=== PATIENT | male | born 1975 | race Caucasian/White ===

== ENCOUNTER 2021-04-19 16:07 | Emergency (ER) | payer BC, OTHER ==
[~2021-04-19] VITALS: Ht 182.9 cm; Wt 120.0 kg
--- NOTE | 2021-04-19 16:12 | ED General ---
General Stated Complaint: LIP SWELLING History of Present Illness Date Seen by Provider: Apr 19, 2021 Time Seen by Provider: 16:12 Initial Comments 45-year-old male presents with concerns for anaphylactic reaction. Patient reports that he got bit by a bee on his right arm. That he is allergic to bees. Patient had some mild lip swelling. He took a Benadryl in route present at [facility]. This happened approximately 30 minutes prior to arrival to the ER. Upon arrival at [facility] they gave him an EpiPen. Patient did not present with any nausea, vomiting, wheezing or shortness of breath. He does not report a rash. No other systemic complaints. Allergies and Home Medications Allergies Coded Allergies: No Known Drug Allergies (Unverified , 04/19/21) Home Medications Epinephrine 0.3 Mg/0.3 Ml Auto.injct, 0.3 MG IJ ONCE Prescribed by: SONYA YOUNGBLOOD on 04/19/21 9351 Patient Home Medication List Home Medication List Reviewed: Yes Review of Systems Review of Systems Constitutional: No see HPI, No chills EENTM: see HPI Respiratory: No cough, No short of breath, No wheezing Cardiovascular: No chest pain, No palpitations Gastrointestinal: no symptoms reported; No abdominal pain, No diarrhea, No nausea, No vomiting Musculoskeletal: no symptoms reported Skin: No rash Psychiatric/Neurological: No Symptoms Reported Hematologic/Lymphatic: No Symptoms Reported Physical Exam Vital Signs Vital Signs - First Documented 04/19/21 16:07 Temp 37.0 Pulse 92 Resp 20 B/P (MAP) 187/95 (125) Pulse Ox 94 O2 Delivery Room Air Capillary Refill : Height, Weight, BMI Height: '" Weight: lbs. oz. 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 Skin: Normal Color, Warm/Dry Progress/Results/Core Measures Suspected Sepsis SIRS Temperature: Pulse: Respiratory Rate: Blood Pressure / Mean: Results/Orders My Orders Orders - SONYA YOUNGBLOOD DO Famotidine Injection (Pepcid Injection) (04/19/21 16:13) Methylprednisolone Sod Succ (Solu-Medrol (04/19/21 16:13) Hydroxyzine Cap/Tab (Vistaril) (04/19/21 18:00) Medications Given in ED Current Medications Medications Dose Ordered Sig/Jacinto Route Start Time Stop Time Status Last Admin Dose Admin Hydroxyzine Pamoate 25 mg ONCE ONCE PO 04/19/21 18:00 04/19/21 18:01 DC 04/19/21 18:01 25 MG Vital Signs/I&O 04/19/21 04/19/21 16:07 19:05 Temp 37.0 37.0 Pulse 92 89 Resp 20 14 B/P (MAP) 187/95 (125) 141/77 (125) Pulse Ox 94 95 O2 Delivery Room Air Room Air Capillary Refill : Progress Note : Progress Note Patient had a little mild itching during the stay but otherwise remained asymptomatic. Patient was stable, discharged home. He was discharged with a prescription for an EpiPen. He should return to the ER as needed Departure Impression Primary Impression: Bee sting Qualified Codes: T63.441A - Toxic effect of venom of bees, accidental (unintentional), initial encounter Additional Impression: Allergic reaction to bee sting Disposition: HOME, SELF-CARE Condition: Improved Departure-Patient Inst. Referrals: NO,LOCAL PHYSICIAN (PCP/Family) Primary Care Physician Patient Instructions: Allergic Reaction ED Scripts Epinephrine (Epipen) 0.3 Mg/0.3 Ml Auto.injct 0.3 MG IJ ONCE, #1 EA Prov: SONYA YOUNGBLOOD DO 04/19/21 SONYA YOUNGBLOOD DO Apr 19, 2021 16:12
[2021-04-19] MEDS ORDERED: FAMOTIDINE 20MG/2ML IV (PEPCID) IV STA (16:13)
[2021-04-19] MEDS ORDERED: methylPREDNISolone 125 MG (Solu-MEDROL) VIAL IV STA (16:13)
[2021-04-19] MEDS ORDERED: EPIN0.3P2 IJ (16:25)
[2021-04-19] MEDS ORDERED: hydrOXYzine (VISTARIL/ATARAX) 25 MG capsule/tablet PO ONE (18:00)
[2021-04-19 19:05] VITALS: BP 141/77
== END 2021-04-19 19:05 | disposition home or self-care (01) ==
LOC: ER FS 16:09
DX: T63.441A Toxic effect of venom of bees, accidental (unintentional), initial encounter (principal)
CPT/HCPCS: 99283

== ENCOUNTER 2023-06-25 10:10 | Emergency (ER) | payer BC, OTHER ==
[~2023-06-25] VITALS: Ht 182 cm; Wt 116.0 kg
[~2023-06-25 10:10] MED LIST: EPIN0.3P2 IJ
[2023-06-25 10:18] VITALS: BP 168/107
[2023-06-25] MEDS ORDERED: KETOROLAC INJ 60 MG/2 ML VIAL IM STA (10:23)
--- NOTE | 2023-06-25 10:45 | Diagnostic Imaging Report ---
INDICATION: right lower rib pain after cough, fall 06/15 TECHNIQUE: Single view chest along with 3 views right RIBS, 10:38 AM CORRELATION STUDY: None FINDINGS: The heart size, mediastinal configuration and pulmonary vascularity are within normal limits. The lungs are clear with no consolidating infiltrate. There is no significant effusion or pneumothorax. No acute displaced right rib fracture. IMPRESSION: 1. Negative appearing single view chest. 2. Negative for acute displaced right-sided rib fracture. Dictated by: Dictated on workstation # [id number]
--- NOTE | 2023-06-25 10:54 | ED Chest Pain ---
General Chief Complaint: Chest Wall Stated Complaint: RT RIB PAIN Nursing Triage Note: Patient has ambulated to ER with cc of postior right rib pain. Patient that he fell back into a cooler on last Friday and "broke his ribs". He has not seen anyone for the pain. Today he coughed and he states that "he rebroke" his ribs during the cough this morning. He has not taken anything for the pain. He has not seen his doctor and came to ER for evaluation. Source: patient History of Present Illness Date Seen by Provider: Jun 25, 2023 Time Seen by Provider: 10:13 Initial Comments 48 yo male presenting with complaint of pain to right side of chest and ribs. He was coughing today and felt a pop and had severe pain to right lower ribs. He felt like he had broken a rib and was concerned that he might have had a rib fracture from FridayJune 15 when he fell against a cooler. He has increased pain with movement and with deep breaths. He wanted to get imaging to check for broken rib or collapsed lung. He had to use some of his time off from work last week due to the pain and was just starting to feel better when he coughed today and everything got much worse. He denies taking anything for the pain as he states he has high tolerance for pain and when he takes medications he quickly develops a tolerance to them. He states that in the past he had been on pain medicine and muscle relaxers to help with his low back pain but it has been over 10 to 12 years. At that time he had to have oxycodone to try and help with the pain and "a really strong" muscle relaxer but he could not remember which muscle relaxer. Severity/Quality: severe, sharp Location: back (lower right posterior rib pain) Activities at Onset: other (coughing today) Modifying Factors: worse with breathing, worse with coughing, worse with movement, worse with palpation ASA po BODY REPAIRER: No NTG SL BODY REPAIRER: No Associated Symptoms: No abdominal pain, No back pain, No diaphoresis, No d izziness, No edema, No fatigue, No fever/chills, No headache, No heartburn, No nausea/vomiting, No rash, No shortness of breath, No swelling/lump in chest, No syncope, No weakness Allergies and Home Medications Allergies Coded Allergies: No Known Drug Allergies (Unverified , 04/19/21) Patient Home Medication List Home Medication List Reviewed: Yes Cyclobenzaprine HCl (Cyclobenzaprine HCl) 10 Mg Tablet, 10 MG PO Q8H PRN for SPASMS Prescribed by: BARBARA HERNANDEZ on 06/25/23 1112 Epinephrine (Epipen) 0.3 Mg/0.3 Ml Auto.injct, 0.3 MG IJ ONCE Prescribed by: SONYA YOUNGBLOOD on 04/19/21 1625 Oxycodone HCl/Acetaminophen (Oxycodone-Acetaminophen 10-325) 10 Mg-325 Mg Tablet, 1 EACH PO Q6H PRN for PAIN SEVERE Prescribed by: BARBARA HERNANDEZ on 06/25/23 1112 Review of Systems Review of Systems Constitutional: No chills, No fever EENTM: No Symptoms Reported Respiratory: See HPI Cardiovascular: See HPI Gastrointestinal: No Symptoms Reported Genitourinary: No Symptoms Reported Musculoskeletal: see HPI Skin: no symptoms reported Psychiatric/Neurological: Denies Numbness, Denies Paresthesia Past Kofhuut-Zapzlk-Uooamf Hx Patient Social History Tobacco Use?: Yes Tobacco type used: Cigarettes Use of E-Cig and/or Vaping dev: No Substance use?: No Alcohol Use?: Yes Alcohol Frequency: Once in a while Physical Exam Vital Signs Vital Signs - First Documented 06/25/23 10:18 Temp 36.6 Pulse 83 Resp 18 B/P (MAP) 168/107 (127) Pulse Ox 98 O2 Delivery Room Air Capillary Refill : Height, Weight, BMI Height: '" Weight: lbs. oz. kg; 35.00 BMI Method: General Appearance: No Apparent Distress, WD/WN Respiratory: No Chest Non Tender (Tender to palpation especially on the right lower posterior ribs. No crepitus or step-off palpated or noted.); Lungs Clear, No Accessory Muscle Use, No Respiratory Distress, Decreased Breath Sounds Cardiovascular: Regular Rate, Rhythm, Normal Peripheral Pulses Neurologic/Psychiatric: Alert, Oriented x3 Skin: Normal Color, Warm/Dry; No Ecchymosis Progress/Results/Core Measures Results/Orders My Orders Orders - BARBARA HERNANDEZ MD Ketorolac Injection (Ketorolac Injection (06/25/23 10:23) Ribs/Unilateral With Chest (06/25/23 10:24) Vital Signs/I&O 06/25/23 10:18 Temp 36.6 Pulse 83 Resp 18 B/P (MAP) 168/107 (127) Pulse Ox 98 O2 Delivery Room Air Blood Pressure Mean: 127 Progress Progress Note #1: Progress Note Differential diagnosis includes rib fracture, rib contusion, chest wall contusion, pneumothorax, hemothorax, pleural effusion. Offered medicine to help with pain and inflammation while waiting on x-rays. Patient drove himself so unable to give anything stronger than Toradol. He was agreeable to getting a Toradol shot so Toradol 60 mg IM was ordered. Obtain a chest x-ray with right rib films. Progress Note #2: Progress Note No acute process or definite rib fracture seen on imaging. No pneumothorax. Reassured patient and counseled on symptomatic care as well as we will try prescribing cyclobenzaprine and Percocet. As he is complaining of severe pain and has a tolerance to medicine will prescribe oxycodone/acetaminophen 10/325 1 pill every 6 hours as needed severe pain. Prescribed 5 days worth of medicine. Also sent cyclobenzaprine 10 mg p.o. 3 times daily as needed muscle spasms x10 days. Counseled on follow-up and return precautions. Advised he could try using [id number] lidocaine patches as well. If having continued concerns or more problems or needed additional medicine then check with Dr. Alexander or the [facility] clinic. Diagnostic Imaging Diagonstic Imaging: Xray Plain Films/CT/US/NM/MRI: chest (with ribs) Comments NAME: CHERISE REYNA [facility] REC#: [id number] PT STATUS: REG ER : 1975 PHYSICIAN: BARBARA HERNANDEZ MD ADMIT DATE: 06/25/23/ER FS Draft Date of Exam:06/25/23 RIBS/UNILATERAL WITH CHEST INDICATION: right lower rib pain after cough, fall 06/15 TECHNIQUE: Single view chest along with 3 views right RIBS, 10:38 AM CORRELATION STUDY: None FINDINGS: The heart size, mediastinal configuration and pulmonary vascularity are within normal limits. The lungs are clear with no consolidating infiltrate. There is no significant effusion or pneumothorax. No acute displaced right rib fracture. IMPRESSION: 1. Negative appearing single view chest. 2. Negative for acute displaced right-sided rib fracture. Dictated on workstation # [id number] Dict: 06/25/23 1043 Trans: 06/25/23 1044 DO [id number] Interpreted by: BIANCA ABDI DO Electronically signed by: Reviewed: Reviewed by Me Departure Impression Primary Impression: Right-sided chest wall pain Additional Impressions: Contusion of right chest wall Qualified Codes: S20.211A - Contusion of right front wall of thorax, initial encounter Rib pain on right side Fall Qualified Codes: W19.XXXA - Unspecified fall, initial encounter Disposition: 01 HOME, SELF-CARE Condition: Stable Departure-Patient Inst. Decision time for Depature: 11:10 Referrals: NO,LOCAL PHYSICIAN (PCP) Primary Care Physician SHAR,GWYN CHAWLA [facility] Patient Instructions: Rib Fracture or Bruised Rib ED, Minor Contusion ED Add. Discharge Instructions: Try alternating ice and heat to the chest wall to help with pain and inflammation. Consider using a Lidocaine patch to help numb the area of pain along your ribs. Over the counter you can use SalonPas or store brand lidocaine pain patch. Check back with clinic at [facility] for continued symptoms or more concerns. All discharge instructions reviewed with patient and/or family. Voiced understanding. Scripts Oxycodone HCl/Acetaminophen (Oxycodone-Acetaminophen 10-325) 10 Mg-325 Mg Tablet 1 EACH PO Q6H PRN for PAIN SEVERE MDD 3 for 5 Days, #20 TAB 0 Refills Prov: BARBARA HERNANDEZ MD 06/25/23 Cyclobenzaprine HCl (Cyclobenzaprine HCl) 10 Mg Tablet 10 MG PO Q8H PRN for SPASMS for 10 Days, #30 TAB 0 Refills Prov: BARBARA HERNANDEZ MD 06/25/23 Work/School Note: Work Release Form Date Seen in the Emergency Department: Jun 25, 2023 Return to Work: Jun 30, 2023 Restrictions: No Restrictions BARBARA HERNANDEZ MD Jun 25, 2023 10:54
[2023-06-25] MEDS ORDERED: OXYC-556 PO (11:12)
[2023-06-25] MEDS ORDERED: CYCL10TA25 PO (11:12)
== END 2023-06-25 11:16 | disposition home or self-care (01) ==
LOC: EDUNIT# 10:10 → ER FS 10:13
DX: S20.211A Contusion of right front wall of thorax, initial encounter (principal); F17.210 Nicotine dependence, cigarettes, uncomplicated; W18.30XA Fall on same level, unspecified, initial encounter; X50.1XXA Overexertion from prolonged static or awkward postures, initial encounter
CPT/HCPCS: 71101